=== PATIENT | male | born 1995 | race African-American/Black ===

== ENCOUNTER 2016-07-16 21:18 | Emergency (ER) | payer SELFPAY ==
[~2016-07-16] VITALS: Ht 172.7 cm; Wt 68.0 kg
[2016-07-16 21:20] VITALS: BP 150/88; PULSE 60; RESP 16; TEMP 98.1; O2SAT 98
--- NOTE | 2016-07-16 22:20 | PD ---
HPI Chief Complaint: Medical Clearance Time Seen by Provider: 22:19 Travel History International Travel<30 days: No Contact w/Intl Traveler<30days: No Traveled to known affect area: No History of Present Illness HPI 20-year-old male presents to the emergency department requesting STD testing. 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 Patient denies any history of STDs. States that he is not having any burning with urination or penile discharge. He has no other symptoms to report. History Past Medical Histgory Medical History: Denies Significant Hx Social History Alcohol Use: No Tobacco Use: No Allergies-Medications (Allergen,Severity, Reaction): Coded Allergies: No Known Allergies (Unverified , 07/16/16) Review of Systems Except as stated in HPI: all other systems reviewed are Neg Physical Exam Narrative GENERAL: Well-nourished, well-developed patient, in no acute distress SKIN: Warm and dry. HEAD: Normocephalic. EYES: No scleral icterus. No injection or drainage. NECK: Supple, trachea midline. No JVD or lymphadenopathy. CARDIOVASCULAR: Regular rate and rhythm without murmurs, gallops, or rubs. RESPIRATORY: Breath sounds equal bilaterally. No accessory muscle use. GASTROINTESTINAL: Abdomen soft, non-tender, nondistended. MUSCULOSKELETAL: No cyanosis, or edema. BACK: Nontender without obvious deformity. No CVA tenderness. Data Data Last Documented VS Vital Signs Date Time Temp Pulse Resp B/P Pulse Ox O2 Delivery O2 Flow Rate FiO2 07/16/16 21:20 98.1 60 16 150/88 98 Room Air MDM Medical Screen Exam Complete: Yes Emergency Medical Condition: No Differential Diagnosis STD screening Narrative Course 20-year-old male presents to the emergency department requesting STD testing. Patient appears well and without distress. He is reporting no symptoms. I have encouraged that he practices safe sex and follow-up with the health department if he would like STD testing. At this time there are no urgent or emergent needs for medical intervention identified. A medical screening exam was performed: At the time of evaluation the presenting medical condition was determined not to be of an emergent nature. The patient was given the option of receiving additional care, but declined. Patient was given options for additional community resources from which to obtain care. The Patient Has Been advised to seek medical attention for their presenting complaint. The patient has been advised to return to the ER at any time if an emergent condition develops. Primary Impression: Encounter for medical screening examination Condition: Stable Marina Brown Jul 16, 2016 22:20
== END 2016-07-16 22:27 | disposition left against medical advice (07) ==
LOC: NEPB 21:18
DX: Z71.1 Person with feared health complaint in whom no diagnosis is made (principal)
CPT/HCPCS: 99281

== ENCOUNTER 2017-01-29 09:17 | Emergency (ER) | payer MEDICAID ==
[~2017-01-29] VITALS: Ht 172.7 cm; Wt 70.0 kg
[2017-01-29 09:20] VITALS: BP 135/77; PULSE 78; RESP 20; TEMP 97.8; O2SAT 97
--- NOTE | 2017-01-29 09:53 | PD ---
HPI Chief Complaint: Cold / Flu Symptoms Time Seen by Provider: 09:45 Travel History International Travel<30 days: No Contact w/Intl Traveler<30days: No Traveled to known affect area: No History of Present Illness HPI 21-year-old Afro[place] male presents to the emergency Department with several day history of increased sinus congestion, headache, postnasal drip, cough, and sore throat. He has known nausea, vomiting, or diarrhea. No significant fevers reported. Patient has a history of sinus allergies which may be part of the problem according to the patient. He has a history of allergy to amoxicillin. FORMERLY [facility], 1928–1983 Social History Alcohol Use: No Tobacco Use: No Allergies-Medications (Allergen,Severity, Reaction): Coded Allergies: amoxicillin (Verified Allergy, Severe, Anaphylaxis, 01/29/17) Reported Meds & Prescriptions Reported Meds & Active Scripts Active No Active Prescriptions or Reported Medications Review of Systems Except as stated in HPI: all other systems reviewed are Neg General / Constitutional: No: Fever Eyes: No: Visual changes HENT: Positive: Headaches, Sore Throat, Rhinitis, Rhinorrhea, Congestion, No: Vertigo, Lightheadedness, Nosebleed, Neck Stiffness, Neck Pain, Gingival Bleeding, Dental Difficulties, Ear Discharge, Earache Cardiovascular: No: Chest Pain or Discomfort Respiratory: Positive: Other (postnasal drip), No: Cough, Shortness of Breath, Wheezing, Sneezing Gastrointestinal: No: Nausea, Vomiting, Diarrhea, Abdominal Pain Genitourinary: No: Dysuria Musculoskeletal: No: Pain Skin: No Rash Neurologic: No: Weakness Psychiatric: No: Depression Endocrine: No: Polydipsia Hematologic/Lymphatic: No: Easy Bruising Physical Exam Narrative GENERAL: Patient appears in mild distress. SKIN: Warm and dry. Normal color. Normal turgor HEAD: Atraumatic. Normocephalic. Mild to moderate bilateral sinus tenderness in both frontal and maxillary sinuses. EYES: Pupils equal and round. No scleral icterus. No injection or drainage. ENT: No nasal bleeding or discharge. Mucous membranes pink and moist. TMs are dull and somewhat erythematous bilaterally. Posterior pharynx is somewhat swollen and cobblestoned with mild erythema and postnasal drip noted. Airway is patent. No significant tonsillitis. Uvula is midline. NECK: Trachea midline. Supple and nontender without lymphadenopathy. CARDIOVASCULAR: Regular rate and rhythm. RESPIRATORY: No accessory muscle use. Coarse breath sounds to auscultation. No wheezes rales or rhonchi. Breath sounds equal bilaterally. GASTROINTESTINAL: Abdomen soft, non-tender, nondistended. Hepatic and splenic margins not palpable. MUSCULOSKELETAL: Extremities without clubbing, cyanosis, or edema. No obvious deformities. NEUROLOGICAL: Awake and alert. No obvious cranial nerve deficits. Motor grossly within normal limits. Five out of 5 muscle strength in the arms and legs. Normal speech. PSYCHIATRIC: Appropriate mood and affect; insight and judgment normal. Data Data Last Documented VS Vital Signs Date Time Temp Pulse Resp B/P (MAP) Pulse Ox O2 Delivery O2 Flow Rate FiO2 01/29/17 09:20 97.8 78 20 135/77 (96) 97 Room Air [facility] Medical Decision Making Medical Screen Exam Complete: Yes Emergency Medical Condition: Yes Differential Diagnosis Allergic rhinitis. Sinusitis. Postnasal drip. Narrative Course Patient is given Bactrim DS twice a day 10 days. Patient is to start Flonase nasal spray 2 sprays each nostril daily. Patient is given Aisha 100 mg daily #30 Patient is recommended to use saline nasal spray frequently to promote drainage. Work and school note is given. Patient to follow-up with primary care physician if symptoms do not improve or worsen. Diagnosis Primary Impression: Sinusitis, acute Qualified Codes: J01.40 - Acute pansinusitis, unspecified Referrals: [facility] Patient Instructions: General Instructions, Sinusitis (ED) Departure Forms: School Release, Return to School Date: Jan 30, 2017 Work Release Enter return to work date: Jan 30, 2017 Additional Instructions: Patient is given Bactrim DS twice a day 10 days. Patient is to start Flonase nasal spray 2 sprays each nostril daily. Patient is given Aisha 100 mg daily #30 Patient is recommended to use saline nasal spray frequently to promote drainage. Work and school note is given. Patient to follow-up with primary care physician if symptoms do not improve or worsen. Med/Other Pt SpecificInfo: Prescription(s) given Scripts Fexofenadine (Aisha Allergy) 180 Mg Tab 180 MG PO DAILY for Allergy Management, #30 TAB 0 Refills Prov: Camilo Avery MD 01/29/17 Fluticasone Nasal [place] (Flonase Nasal [place]) 50 Mcg/Act [place] 100 MCG EACH NARE BID for Allergies, #1 BOTTLE 0 Refills Prov: Camilo Avery MD 01/29/17 Sulfamethoxazole-Trimethoprim (Bactrim DS) 800-160 Mg Tab 1 TAB PO BID for Infection, #20 TAB 0 Refills Prov: Camilo Avery MD 01/29/17 Disposition: 01 DISCHARGE HOME Condition: Stable Gael Chamberlain Jan 29, 2017 09:53
[2017-01-29] MEDS ORDERED: FEXO15TA PO (09:57)
[2017-01-29] MEDS ORDERED: FLUT1SPR5 EACH NARE (09:57)
[2017-01-29] MEDS ORDERED: BACT800T5 PO (09:57)
== END 2017-01-29 10:23 | disposition home or self-care (01) ==
LOC: NEPK 09:17
DX: J01.90 Acute sinusitis, unspecified (principal); R51 Headache; R11.2 Nausea with vomiting, unspecified; R19.7 Diarrhea, unspecified; Z88.0 Allergy status to penicillin
CPT/HCPCS: 99283